=== PATIENT | male | born 1990 | race Caucasian/White ===

== ENCOUNTER 2017-02-09 09:50 | Emergency (ER) | payer BC ==
[~2017-02-09] VITALS: Ht 182.9 cm; Wt 99.8 kg
[~2017-02-09 09:50] MED LIST: AMOXICILLIN 25250 MG PO; KEFLEX 500MG.500 MG PO; LORTAB 5/500 501 TAB PO; NOMEDS XX; VOLTAREN75 MG PO
[2017-02-09 10:02] LABS: HEMOGLOBIN 16.3 g/dL (14.1-18.0); LYMPH # 1.6 K/mm3 (0.7-4.5); LYMPH % 14.3 % (10-50)
--- NOTE | 2017-02-09 10:11 | Emergency Room Report ---
History of Present Illness Time Seen by 1005 Presenting Problem in Triage Pt arrived:Walked Presenting Problem:PT REPORTS FEVER SINCE THURSDAY NIGHT. PT REPORTS PAIN IN MIDSTERNAL AREA OF CHEST WHEN FIRST HE WAKES UP ALMOST EVERY MORNING WHEN WAKES UP, STATES PAIN GOES AWAY WHEN HE GETS OUT OF BED. PT STATES HAS HAD 2 EPISODES IN THE PAST 2 MONTHS WHERE HE HAS GOTTEN DIZZY AND FELT LIKE HE WAS GOING TO PASS OUT. 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 Y Clinical Suspician of Infection? N Mental Status: 1 - Regular (Normal Baseline) Sepsis Risk:Low Sepsis Risk Have you (or family members/close friends) recently traveled outside the [place]? N If Yes, where/when: Have you had exposure to infectious disease within the past month? N TB? Other? Specify: Source patient, RN notes reviewed, RN/MD Exam Limitations no limitations Comment This is a 26-year-old male patient arriving to the emergency room with nocturnal epigastric pain radiating into the mid chest, for the past 2-3 months. Patient works out regularly, at least 4-5 times/week, taking occasional protein supplements as well. Patient describes the pain as typically occurring around 3 AM, causing him to wake up, and quickly resolved with him sitting or standing. He does not describe any exertional symptoms. Over the weekend he has subjective fever, which resolved after taking Motrin/ Tylenol. Patient has any shortness of breath, any radiation of the epigastric pain. ALLERGIES Coded Allergies: No Known Allergies (12/11/15) History Medical History General CAD? No Angina: No OR: No Hypertension? No Hyperlipidemia? No CHF? No DVT? No PE? No COPD? No Asthma? No Anemia? No GERD? No Gastric ulcers? No GI Bleed? No Hernia? No Thyroid Problems? No Hypothyroidism? No CVA? No Seizures? No Diabetes? No Renal Insuffiency? No End Stage Renal Disease? No UTI? No Stones? No BPH? No GB Disease: No Nephritic Syndrome? No Asplenia? No Hepatitis? No Sickle Cell Disease? No Arthritis? No Migraines? No Cataracts? No Glaucoma? No MRSA? No HIV? No TB? No Anxiety? No Depression? No Cancer? No More? No Immunization Hx DT/Tetanus 1-4 YRS Flu UNKNOWN Pneumonia UNKNOWN Surgical Hx Previous Surgery?Y Appendix Family History Family Hx Diabetes No CAD No Hypertension Yes Hyperlipidemia No Cancer No TB No Social History Smoking Hx Smoker: Never Smoker Tobacco: Yes Type Snuff Packs/day < 1 Pack Alcohol Alcohol: No Review of Systems All Other Systems Reviewed and Negative Constitutional chills, fever Cardiovascular chest pain Physical Exam Vital Signs Vital Signs Date Time Temp Pulse Resp B/P Pulse O2 O2 Flow FiO2 Ox Delivery Rate 02/09 1112 98.2 71 18 123/70 96 02/09 1039 71 18 123/70 96 02/09 0952 98.2 68 18 147/69 97 General Appearance normal appearance, WD/WN, no apparent distress Respiratory Status Yes: trachea midline, chest symmetrical, non tender chest. No: respiratory distress. Lung Sounds bilateral: normal breath sounds, lungs clear. 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 No Comment Upon reevaluation patient appears medically stable, in no acute distress. Advised patient and family member of results obtained. Present patient's account of symptoms it appears that gastroesophageal reflux disease is a possibility. A trial of PPIs was prescribed to patient and he was instructed to follow-up with PCP if not better per discharge instructions. Results/Orders Laboratory Tests 02/09/17 1040: Urine Color YELLOW, Urine Appearance SL CLOUDY, Urine pH 6.0, Ur Specific [place] 1.025, Urine Protein TRACE H, Urine Ketones NEGATIVE, Urine Blood TRACE -LYSED, Urine Nitrate NEGATIVE, Urine Bilirubin 1+ H, Urine Urobilinogen 0.2, Ur Leukocyte Esterase NEGATIVE, Urine RBC NONE, Urine WBC 3-5, Ur Squamous Epith Cells OCC, Urine Bacteria 2+, Urine Mucus 2+, Urine Glucose NEGATIVE 02/09/17 0950: Lactic Acid 0.7 02/09/17 0950: Sodium 138, Potassium 3.7, Chloride 102, Carbon Dioxide 31, BUN 11, Creatinine 1.0, Estimated Creat Clear 155, Estimated GFR (MDRD) 89, Glucose 76, Calcium 9.2 , Total Bilirubin 0.8, AST 16, ALT 26, Alkaline Phosphatase 81, Creatine Kinase 81, CK-MB (CK-2) Rel Index 0.6, CK and CKMB Interp < 0.5, Troponin I < 0.02, Total Protein 8.3 H, Albumin 4.1, Globulin 4.2 H, Albumin/Globulin Ratio 1.0 L, WBC 10.8, RBC 5.24, Hgb 16.3, Hct 47.7, MCV 90.9, RDW 12.5, Plt Count 204, MPV 7.8, Gran % 73.1, Gran # 7.9, Lymphocytes % 14.3, Monocytes % 8.7, Eosinophils % 1.3, Basophils % 2.7 H, Lymphocytes # 1.6, Monocytes # 0.9, Eosinophils # 0.1, Basophils # 0.3 H, PUBS MCHC 34.2, MCH 31.1 02/09/17 0940: Amylase 61, Lipase 165, D-Dimer < 100 Current Medication Orders Sig/Karel Start time Last Medication Dose Route Stop Time Status Admin Sodium Chloride 10 ML PRN PRN 02/09 1000 DCD IV 02/10 0956 Orders Procedure Date/time Status CULTURE, URINE 02/09 1040 Active URINALYSIS/COMPLETE 02/09 1020 Complete D-DIMER 02/09 1020 Complete LIPASE 02/09 1019 Complete AMYLASE 02/09 1019 Complete ELECTROCARDIOGRAM REQUEST 02/09 957 Active IV SALINE LOCK 02/09 957 Active CULTURE, BLOOD 02/09 957 Active LACTIC ACID 02/09 957 Complete CBC WITH AUTO DIFF 02/09 957 Complete CARDIAC ENZYMES 02/09 957 Complete CHEM 12 PROFILE 02/09 957 Complete 12 LEAD EKG-AUBREY (INITIAL) 02/09 UNK Active 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 of ischemic chgs, no ectopy, normal QRS, normal OK, normal EKG, no EKG for comparison, non-spec. ST/Twave chgs, ST elevation, ST depression, LBBB, RBBB, ectopy, abnormal Q waves XRAY/CT/US XRAY/CT/US XRAY chest XR interpretation by reviewed by me, discussed w/radiologist Xray Results no infiltrates, normal heart size, normal lung inflation seamus Departure Departure Time of Disposition 1106 Disposition DC Home or Self Care(routine) Clinical Impression Primary Impression: GERD (gastroesophageal reflux disease) Qualifiers: Esophagitis presence: with esophagitis Qualified Code: K21.0 - Gastro-esophageal reflux disease with esophagitis Secondary Impressions: Chest pain Qualifiers: Chest pain type: unspecified Qualified Code: R07.9 - Chest pain, unspecified Condition STABLE Referrals Camilo Farfan MD (PCP/Family): 1 Week-Call Office if not better Patient Instructions DI for Gastroesophageal Reflux Disease (GERD) Additional Instructions Please take the medication prescribed as directed, if not better follow up with dr. Farfan in 1 week. Discharge Counseling Counseled pt/family regarding diagnosis, test results, medications/RX, home care, follow up needs Comment Please take the medication prescribed as directed, if not better follow up with dr. Farfan in 1 week. Prescriptions Current Visit Scripts Pantoprazole Sodium (Protonix 40MG TAB) 40 MG PO DAILY #30 TAB ED Critical Care Critical Care No at [id number]
--- OUTSIDE RECORDS SUMMARY | 2017-02-09 10:22 | External Medical Summary Rpt | CCD ---
Author Author [employer] Organization [employer] Address Unknown Phone Unavailable Purpose Continuity of Care Document - through 2016
--- OUTSIDE RECORDS SUMMARY | 2017-02-09 10:22 | External Medical Summary Rpt | CCD ---
Author Author , [facility] Organization [facility] Address Unknown Phone [email or web address] Purpose Continuity of Care Document - 02-09-2017 through 2016 Results Labs Lab Lab Date Result Refere Interp Status Commen Order Detail nces retati t Range on CBC w auto diff (02-09-2017 09:50) Automat = 1.3 % 0.1-12. complet ed 017 0 ed blood 09:50 eosinop hils/10 0 leukocy t Blood = 7.9 1.3-8.0 complet granulo 017 K/mm3 ed cytes 09:50 automat ed count (numb Granulo = 73.1 37.0-80 complet cyte 017 % .0 ed percent 09:50 age Blood = 47.7 42.0-52 complet hematoc 017 % .0 ed rit 09:50 (volume fractio n) Blood = 16.3 14.1-18 complet hemoglo 017 g/dL .0 ed bin 09:50 measure ment (mass/v olum Absolut = 1.6 0.7-4.5 complet e 017 K/mm3 ed lymphoc 09:50 yte count Lymphoc = 14.3 10-50 complet yte 017 % ed count, 09:50 blood, automat ed Mean = 31.1 27-31.2 complet corpusc 017 pg ed ular 09:50 hemoglo bin (MCH) determ Automat = 34.2 31.8-35 complet ed 017 g/dl .4 ed erythro 09:50 cyte mean corpusc ular h Automat = 90.9 82.2-97 complet ed 017 fl .8 ed erythro 09:50 cyte mean corpusc ular v Absolut = 0.9 0.1-1.0 complet e 017 K/mm3 ed monocyt 09:50 e count Leslie % = 8.7 % 1.7-9.3 complet 017 ed 09:50 Automat 2 = 7.8 7.4-10. complet ed 017 fl 4 ed blood 09:50 platele t mean volume ghislaine Blood = 204 142-424 complet platele 017 K/mm3 ed t count 09:50 Red = 5.24 4.6-6.2 complet blood 017 M/mm3 ed cell 09:50 count Automat 2 = 0.3 0-0.2 complet ed 017 K/MM3 ed blood 09:50 basophi l count (count/ vo Baso % = 2.7 % 0.1-2.0 complet 017 ed 09:50 Automat 2 = 0.1 0.0-0.4 complet ed 017 K/mm3 ed blood 09:50 eosinop hil count Automat = 12.5 11.5-17 complet ed 017 % .5 ed erythro 09:50 cyte distrib ution width Blood = 10.8 4.8-10. complet leukocy 017 K/MM3 8 ed idalia 09:50 count (number /volume )
--- OUTSIDE RECORDS SUMMARY | 2017-02-09 10:22 | External Medical Summary Rpt | CCD ---
Demographics Preferred Language Upper Sorbian Marital Status Unknown Worship Affiliation Unknown Race Unknown Ethnic Group Unknown Author Author , [facility] LOWE Address Unknown Phone Immunization No patient found.
--- OUTSIDE RECORDS SUMMARY | 2017-02-09 10:22 | External Medical Summary Rpt ---
Author Author [facility] Pickard, [facility] [employer] Address Unknown Phone Unavailable Results CBC W Auto Differential panel in Blood Observa Value Referen Units Interpr Notes Date tion ce etation Range Basophils 0 - 0.2 K/MM3 High No Feb 09 informati 2016 9:50 [#/volume on in AM ] in source Blood by data Automated count Basophils 0.1 - 2.0 % High No Feb 09 informati 2016 9:50 leukocyte on in AM s in source Blood by data Automated count Eosinophi 0.0 - 0.4 K/mm3 Normal No Feb 09 ls informati 2016 9:50 [#/volume on in AM ] in source Blood by data Automated count Eosinophi 0.1 - % Normal No Feb 09 ls/100 12.0 informati 2016 9:50 leukocyte on in AM s in source Blood by data Automated count Granulocy 1.3 - 8.0 K/mm3 Normal No Feb 09 idalia informati 2016 9:50 [#/volume on in AM ] in source Blood by data Automated count Granulocy 37.0 - % Normal No Feb 09 idalia/100 80.0 informati 2017 9:50 leukocyte on in AM s in source Blood by data Automated count Hematocri 42.0 - % Normal No Feb 09 t [Volume 52.0 informati 2016 9:50 on in AM Fraction] source of Blood data Hemoglobi 14.1 - g/dL Normal No Feb 09 n 18.0 informati 2016 9:50 [Mass/vol on in AM ume] in source Blood data Lymphocyt 0.7 - 4.5 K/mm3 Normal No Feb 09 es informati 2016 9:50 [#/volume on in AM ] in source Unspecifi data ed specimen by Automated count Lymphocyt 10 - 50 % Normal No Feb 09 es informati 2016 9:50 [#/volume on in AM ] in source Unspecifi data ed specimen by Automated count Erythrocy 27 - 31.2 pg Normal No Feb 09 te mean informati 2016 9:50 corpuscul on in AM ar source hemoglobi data n [Entitic mass] Erythrocy 31.8 - g/dl Normal No Feb 09 te mean 35.4 informati 2017 9:50 corpuscul on in AM ar source hemoglobi data n concentra tion [Mass/vol ume] by Automated count Erythrocy 82.2 - fl Normal No Jan 16 te mean 97.8 informati 2016 9:50 corpuscul on in AM ar volume source [Entitic data volume] by Automated count Monocytes 0.1 - 1.0 K/mm3 Normal No Feb 09 informati 2016 9:50 [#/volume on in AM ] in source Blood by data Automated count Monocytes 1.7 - 9.3 % Normal No Jan 16 /100 informati 2017 9:50 leukocyte on in AM s in source Blood by data Automated count Platelet 7.4 - fl Normal No Feb 09 mean 10.4 informati 2016 9:50 volume on in AM [Entitic source volume] data in Blood by Automated count Platelets 142 - 424 K/mm3 No No Jan 16 informati informati 2017 9:50 [#/volume on in on in AM ] in source source Blood data data Erythrocy 4.6 - 6.2 M/mm3 Normal No Jan 16 idalia informati 2016 9:50 [#/volume on in AM ] in source Amniotic data fluid Erythrocy 11.5 - % Normal No Jan 16 te 17.5 informati 2016 9:50 distribut on in AM ion width source [Entitic data volume] by Automated count Leukocyte 4.8 - K/MM3 Normal No Jan 16 s 10.8 informati 2016 9:50 [#/volume on in AM ] in source Blood data
--- OUTSIDE RECORDS SUMMARY | 2017-02-09 10:22 | External Medical Summary Rpt | CCD ---
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
--- OUTSIDE RECORDS SUMMARY | 2017-02-09 10:22 | External Medical Summary Rpt ---
Author Author [facility] Pickard, [facility] [employer] Organization [employer] Address Unknown Phone Unavailable [...]
--- OUTSIDE RECORDS SUMMARY | 2017-02-09 10:22 | External Medical Summary Rpt | CCD ---
Author Author , [facility] Organization [facility] Address Unknown Phone [email or web address] Purpose Continuity of Care Document - 02-09-2017 [...] 017 K/mm3 ed monocyt 09:50 e count Bureau % = 8.7 % 1.7-9.3 complet 017 [...]
[2017-02-09 10:45] LABS: BUN 11 mg/dL (7-18)
[2017-02-09 10:46] LABS: GFR (ESTIMATED) 89 ML/MIN (>60)
[2017-02-09 10:50] LABS: URINE BLOOD TRACE-LYSED (NEG)
[2017-02-09 11:04] LABS: URINE BILIRUBIN - DIPSTICK 1+ (NEG)
[2017-02-09] MEDS ORDERED: PROTONIX 40MG T40 MG PO (11:08)
[2017-02-09 11:12] VITALS: BP 123/70
--- NOTE | 2017-02-09 11:12 | RADIOLOGY REPORT PS360 ---
CHEST(2 VIEWS-NOT PORTABLE) HISTORY: NOT FEELING WELL; PAIN IN CHEST ORDERING PHYSICIAN: Kalen Sparrow MD PATIENT AGE: 26 years COMPARISON: 07/23/2013 FINDINGS: The cardiomediastinal silhouette and pulmonary vascularity are within normal limits. The lungs are clear without infiltrates, suspicious nodules, or pleural effusions. No acute bony abnormalities. IMPRESSION: No change with no acute finding
[2017-02-09 11:28] LABS: URINE SQUAMOUS CELLS OCC #/hpf (OCC)
== END 2017-02-09 11:12 | disposition home or self-care (01) ==
LOC: ER 09:50
PROVIDERS: Emergency Medicine
DX: K21.9 Gastro-esophageal reflux disease without esophagitis (principal); R07.9 Chest pain, unspecified; F17.220 Nicotine dependence, chewing tobacco, uncomplicated